=== PATIENT | male | born 1985 | race Caucasian/White ===

== ENCOUNTER 2019-12-16 09:32 | Outpatient (REF) | payer OTHER, SELFPAY ==
--- NOTE | 2019-12-16 09:34 | XR_ITS ---
EXAMINATION: XR SHOULDER, RIGHT CLINICAL INFORMATION: Pain right shoulder COMPARISON: None TECHNIQUE: Right shoulder is imaged in 3 views. FINDINGS: There is no fracture or dislocation. The glenohumeral joint appears normal. The acromioclavicular alignment is normal. There are no visible rotator cuff calcifications. XR/XR shoulder RT min 2V IMPRESSION: Normal right shoulder.
== END 2019-12-16 09:33 | disposition home or self-care (01) ==
LOC: HO.XRAY 09:32
PROVIDERS: PCP Nurse Practitioner Family; Referring Provider Nurse Practitioner Family; Visit Provider Orthopaedic Surgery
DX: M25.519 Pain in unspecified shoulder (principal)
CPT/HCPCS: 73030

== ENCOUNTER 2024-12-24 09:47 | Inpatient (IN) | payer OTHER, SELFPAY ==
--- NOTE | ~2024-12-24 | CT_ITS ---
CLINICAL HISTORY: left flank pain CT abdomen and pelvis without contrast Comparison: None provided Findings: No consolidation or effusion. No urolithiasis or hydronephrosis. Unremarkable liver, spleen, pancreas and adrenal glands. Possible sludge within the gallbladder. There is severe edema of a diverticulum within the proximal sigmoid colon. Severe edema of the associated colon wall and adjacent mesentery. Trace adjacent free fluid. No abscess or extraluminal gas. Pelvic contents unremarkable. Normal appendix. The bones are intact. IMPRESSION: 1. Severe acute diverticulitis of the proximal sigmoid colon. The degree of associated edema raises the possibility of early contained perforation. There is a small amount of free fluid but no abscess. 2. Possible sludge within the gallbladder. This document has been electronically signed by: Sammie Kim MD on 12/24/2024 13:04:00
[2024-12-24 09:51] VITALS: BP 139/79; PULSE 93; RESP 18; TEMP 36.8; O2SAT 98; BMI 24.2
[2024-12-24 10:08] LABS: Hematocrit 46.3 % (42.0-52.0); Hemoglobin 15.6 g/dl (14.0-18.0); Imm Gran Abs Auto 0.05 X10*3/uL (0.00-0.03); Imm Gran Pct Auto 0.3 % (0.0-0.4); Lymphocytes Absolute Auto 1.9 X10*3/uL (1.2-4.9); Mean Corpuscular HGB Conc 33.7 g/dl (31.0-36.0); Mean Corpuscular Hemoglobin 29.3 pg (27.0-33.0); Mean Corpuscular Volume 87.0 fL (80.0-98.0); NRBC Abs Auto 0.000 X10*3/uL (0.0-0.012); NRBC Pct Auto 0.0 /100WBC (0.0-0.2); Platelet Count 299 X10*3/uL (160-400); Red Blood Count 5.32 X10*6/uL (4.60-5.80); SCAN SMEAR FLAG 1; White Blood Count 14.7 X10*3/uL (4.8-10.8)
[2024-12-24 10:09] LABS: MANUAL DIFF FLAG SCAN
[2024-12-24 10:28] LABS: Alanine Aminotransferase 27 U/L (0-40); Albumin Level 4.9 g/dL (3.5-5.0); Alkaline Phosphatase 68 U/L (39-117); Anion Gap 11 (12-20); Aspartate Amino Transferase 22 U/L (5-37); Blood Urea Nitrogen 14 mg/dL (9-16); Calcium 9.9 mg/dL (8.4-10.2); Carbon Dioxide 28 mmol/L (22-29); Chloride 105 mmol/L (96-108); Creatinine Clr Calc Pharmacy 106.8; Estimated Glomerular Filt Rate > 60; Potassium 4.1 mmol/L (3.3-5.1); Sodium 140 mmol/L (135-145); Total Protein 8.0 g/dL (6.5-8.0)
--- NOTE | 2024-12-24 10:35 | ED.ABDPAIN ---
HPI - Abdominal Pain General Chief Complaint: Abdominal Pain Stated Complaint: severe abd pain Time Seen by Provider: 12/24/24 10:00 History of Present Illness HPI narrative: Patient is a 39-year-old male presents today with having left lower quadrant pain sudden in onset no history of previous surgery no history of kidney stone in the past. No fever no chills. No vomiting. No diarrhea. Patient from home. Pain is 12/02. Related Data Home Medications ?Medication ?Instructions ?Recorded ?Confirmed No Known Home Meds 12/22/19 12/22/19 Allergies Allergy/AdvReac Type Severity Reaction Status Date / Time No Known Allergies Allergy Verified 12/24/24 09:53 Review of Systems Review of Systems Positive abdominal pain in the left lower quadrant Yes all other systems are reviewed and are negative PMFSH Past Medical History Attestation statement: The following information was validated with the patient. Medical History Shoulder pain Surgical History Hx of anterior cruciate ligament tear reconstruction Family History Family History Mother No problems noted. Father No problems noted. 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 Oriented X3. No acute distress. Eyes: Pupils equal, round and reactive to light. ENT: Pharynx normal. Neck: Normal inspection. Neck supple. No lymph nodes noted. No crepitus CVS: Normal heart rate and rhythm. Pulses normal. Normal S1 and S2 Respiratory: No respiratory distress. Breath sounds normal. No Wheezing. No rales Abdomen: Soft and nontender. Mild left lower quadrant pain no rebound or guarding Skin: Skin warm and dry. Normal skin color. Normal skin turgor. Extremities: No lower extremity edema. Neurovascular intact to all extremities. No Lacerations. No Rash Neuro: Oriented X 3. No motor deficit. No sensory deficit. Moving all extermities. No slurred speech Vital Signs: Vital Signs - 24 hr 12/24/24 09:51 12/24/24 10:58 12/24/24 12:23 Temperature 98.2 F 98.0 F Pulse Rate 93 72 Respiratory Rate 18 20 14 Blood Pressure 139/79 120/73 Pulse Oximetry 98 98 Oxygen Delivery Method Room Air Room Air BMI result Body Mass Index 24.2 Medical Decision Making Medical Decision Making [facility] Narrative: Patient is 39 years old presents today with having left lower quadrant abdominal pain. Urine showed no signs of infection but it did show lot of blood. The CT scan was done. CT scan showed evidence for diverticulitis there was a question early abscess. Antibiotic was started. Case was discussed with surgery. [place] at the present time not a surgical candidate. Once patient to be admitted on the medical team. Started on Rocephin and Flagyl. Discussed with patient the need to stay in the hospital given that there might be an early abscess. Currently in stable condition white count was 15 patient to be admitted Differential Diagnosis Differential Diagnoses: The differential diagnosis associated with the presentation includes Admission/Observation Consideration of admission/observation: Escalation of care including admission/observation considered Consult Healthcare Provider Management of the patient was discussed with: Hospitalist and Retail Support Specialist (Surgery) Lab Data [facility] Lab Attestation statement: I reviewed the patient's lab results. 12/24/24 10:03 12/24/24 10:03 Labs: Lab Results 12/24/24 12/24/24 Range/Units 10:03 10:24 WBC 14.7 H (4.8-10.8) X10*3/uL RBC 5.32 (4.60-5.80) X10*6/uL Hgb 15.6 (14.0-18.0) g/dl Hct 46.3 (42.0-52.0) % MCV 87.0 (80.0-98.0) fL MCH 29.3 (27.0-33.0) pg MCHC 33.7 (31.0-36.0) g/dl RDW 12.9 (11.0-16.0) % Plt Count 299 (160-400) X10*3/uL MPV 9.9 (9.4-12.4) fL Immature Gran % (Auto) 0.3 (0.0-0.4) % Neut % (Auto) 74.7 H (45-73) % Lymph % (Auto) 13.0 L (20-40) % [place] % (Auto) 10.8 (2-11) % Eos % (Auto) 0.5 (0-4) % Baso % (Auto) 0.7 (0-2) % Lymph # (Auto) 1.9 (1.2-4.9) X10*3/uL [place] # (Auto) 1.6 H (0.1-1.2) X10*3/uL Eos # (Auto) 0.1 (0.0-0.4) X10*3/uL Baso # (Auto) 0.1 (0.0-0.2) X10*3/uL Abs Immat Gran (auto) 0.05 H (0.00-0.03) X10*3/uL Absolute Neuts (auto) 11.0 H (2.0-8.3) x10*3/uL Absolute Nucleated RBC 0.000 (0.0-0.012) X10*3/uL Nucleated RBC % (auto) 0.0 (0.0-0.2) /100WBC Smear Tech's Comments VERIFIED Sodium 140 (135-145) mmol/L Potassium 4.1 (3.3-5.1) mmol/L Chloride 105 (96-108) mmol/L Carbon Dioxide 28 (22-29) mmol/L Anion Gap 11 L (12-20) BUN 14 (9-16) mg/dL Creatinine 0.88 (0.5-1.4) mg/dL Estim Creat Clear Calc 106.8 Estimated GFR > 60 Random Glucose 105 (60-115) mg/dL Calcium 9.9 (8.4-10.2) mg/dL Total Bilirubin 0.9 (0.0-1.0) mg/dL AST 22 (5-37) U/L ALT 27 (0-40) U/L Alkaline Phosphatase 68 (39-117) U/L Total Protein 8.0 (6.5-8.0) g/dL Albumin 4.9 (3.5-5.0) g/dL Lipase 11 (8-78) U/L Urine Color Dark Yellow Urine Appearance Clear Urine pH 6.0 (5.0-9.0) Ur Specific [place] 1.025 (1.005-1.025) Urine Protein Trace (Neg-Trace) mg/dL Urine Glucose (UA) Negative (Negative) mg/dL Urine Ketones 40 (Negative) mg/dL Urine Blood Moderate (2+) H (Negative) Urine Nitrite Negative (Negative) Ur Leukocyte Esterase Trace H (Negative) Urine RBC 11-20 H (0-2) /HPF Urine WBC 0-5 (0-5) /HPF Ur Squamous Epith Cells 0-2 (0-2) /HPF Urine Bacteria None Seen (None Seen) Hyaline Casts 0-2 (0-2) /LPF Independent Interpretation I performed an independent interpretation of an: CT Scan (Likely diverticulitis) Radiology Impression Discussion of test interpretation with radiology: I have reviewed the radiologist's reading. External Record Review External record reviewed: Office record Social Determinants Patient?s care significantly limited by Social Determinants of Health including: Problems related to primary support group Medications Administered Discontinued Medications Generic Name Dose Route Start Last Admin Trade Name Freq PRN Reason Stop Dose Admin Hydromorphone HCl 0.5 mg 12/24/24 10:30 12/24/24 10:58 Hydromorphone Hcl 0.5 Mg/0.5 Ml Syringe IVPUSH 12/24/24 10:31 0.5 mg ONCE ONE Administration Protocol Sodium Chloride 1,000 mls @ 999 mls/hr 12/24/24 10:30 12/24/24 12:14 Ns IV 12/24/24 11:30 Infused .Q1H1M JOVAN Infusion Sodium Chloride 1,000 mls @ 999 mls/hr 12/24/24 10:30 12/24/24 12:15 Ns IV 12/24/24 11:30 Infused .Q1H1M JOVAN Infusion Ketorolac Tromethamine 15 mg 12/24/24 10:32 12/24/24 10:59 Ketorolac Tromethamine 15 Mg/Ml Vial IVPUSH 12/24/24 10:33 15 mg ONCE ONE Administration Ondansetron HCl 4 mg 12/24/24 10:34 12/24/24 10:58 Ondansetron Hcl 4 Mg/2 Ml Vial IVPUSH 12/24/24 10:35 4 mg ONCE ONE Administration Critical Care Time Critical Care Time Critical Care Time: Yes Total Critical Care Time: 40 Attestation: I have personally provided 40 minutes of critical care time exclusive of time spent on separately billable procedures. ?Time includes review of lab data, radiology results, discussion with consultants, and monitoring for potential decompensation. ?Interventions were performed as documented above Discharge Plan Discharge Clinical Impression: Diverticulitis Patient Disposition: Admitted As Inpatient Print Language: Luxembourger
[2024-12-24 10:36] LABS: Appearance Urine Clear; Glucose Urine UA Negative (Negative); PH 6.0 (5.0-9.0); Specific Gravity - Urine 1.025 (1.005-1.025); UMIC TRIGGER UACC YES
[2024-12-24 10:58] VITALS: RESP 20
[2024-12-24 11:20] LABS: Lipase 11 U/L (8-78)
[2024-12-24 12:23] VITALS: BP 120/73; PULSE 72; RESP 14; TEMP 36.7; O2SAT 98
--- NOTE | 2024-12-24 13:37 | PM.IMHP ---
History of Present Illness Date of Service: 12/24/24 Attending physician on admission: Laith Kendall Chief Complaint: abdominal pain This is a 39-year-old male with no significant past medical history who presents to the emergency department with abdominal pain. Patient reports abdominal pain starting 3 days ago. The pain is located in the left lower quadrant with no radiation. His pain is associated with nausea and decreased oral intake. He denies any diarrhea, fever, chills. He has not travel or any recent in the emergency department, lab work was significant for leukocytosis of 14.7. CT scan of the abdomen and pelvis showed severe acute diverticulitis of the proximal sigmoid colon. A degree of the edema associated was concerning for early contained perforation. There was a small amount of free fluid but no abscess. He denies any previous history of diverticulitis. He has had no previous colonoscopy. He was treated with IV ceftriaxone and Flagyl. The emergency room provider discussed the case with the on-call surgeon who recommended admission to the medicine service. Review of Systems Review of Systems: Yes all other systems are reviewed and are negative Constitutional: Constitutional: Denies chills and Denies fever(s) Cardiovascular: Cardiovascular: Denies chest pain, Denies palpitations and Denies dyspnea Respiratory: Respiratory: Denies cough and Denies dyspnea Gastrointestinal: Gastrointestinal: Reports abdominal pain, Denies diarrhea and Reports nausea Endocrine: Endocrine: Denies palpitations [facility] Medical History Shoulder pain Family History Mother No problems noted. Father No problems noted. 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 Meds Allergies Allergy/AdvReac Type Severity Reaction Status Date / Time No Known Allergies Allergy Verified 12/24/24 09:53 Active Medications: Current Medications Ceftriaxone Sodium 1 gm/ (Sodium Chloride) 50 mls @ 100 mls/hr IV ONCE ONE Stop: 12/24/24 13:43 Metronidazole (Flagyl) 500 mg in 100 mls @ 100 mls/hr IV ONCE ONE Stop: 12/24/24 14:13 Home Medications ?Medication ?Instructions ?Recorded ?Confirmed ?Last Taken ?Type No Known Home Meds 12/22/19 12/22/19 Unknown History Physical Exam Vital Signs and Narrative: Vital Signs: Last Vital Signs Temp 98.0 F 12/24/24 12:23 Pulse 72 12/24/24 12:23 Resp 14 12/24/24 12:23 BP 120/73 12/24/24 12:23 Pulse Ox 98 12/24/24 12:23 O2 Del Method Room Air 12/24/24 12:23 BMI result Body Mass Index 24.2 Const: Other: appears uncomfortable; pale General: cooperative, alert and awake Nutritional Appearance: average body habitus Orientation/consciousness: patient oriented x3 Resp: Effort & Inspection: normal respiratory effort, able to speak in complete sentences, no respiratory distress and no use of accessory muscles Cardio: Rate: regular rate GI: Other: LLQ TTP; no guarding or rebound; no rigidity Neuro: General: patient oriented x3, moves all extremities and CN's II-XI intact bilaterally Results Labs 12/24/24 10:03 12/24/24 10:03 Labs: Laboratory Results - last 24 hr 12/24/24 12/24/24 10:03 10:24 MCV 87.0 MCH 29.3 MCHC 33.7 RDW 12.9 Plt Count 299 MPV 9.9 Immature Gran % (Auto) 0.3 Neut % (Auto) 74.7 H Lymph % (Auto) 13.0 L [place] % (Auto) 10.8 Eos % (Auto) 0.5 Baso % (Auto) 0.7 Lymph # (Auto) 1.9 [place] # (Auto) 1.6 H Eos # (Auto) 0.1 Baso # (Auto) 0.1 Abs Immat Gran (auto) 0.05 H Absolute Neuts (auto) 11.0 H Absolute Nucleated RBC 0.000 Nucleated RBC % (auto) 0.0 Smear Tech's Comments VERIFIED Anion Gap 11 L Estim Creat Clear Calc 106.8 Estimated GFR > 60 Random Glucose 105 Calcium 9.9 Total Bilirubin 0.9 AST 22 ALT 27 Alkaline Phosphatase 68 Total Protein 8.0 Albumin 4.9 Lipase 11 Urine Color Dark Yellow Urine Appearance Clear Urine pH 6.0 Ur Specific [place] 1.025 Urine Protein Trace Urine Glucose (UA) Negative Urine Ketones 40 Urine Blood Moderate (2+) H Urine Nitrite Negative Ur Leukocyte Esterase Trace H Urine RBC 11-20 H Urine WBC 0-5 Ur Squamous Epith Cells 0-2 Urine Bacteria None Seen Hyaline Casts 0-2 Assessment and Plan (1) Diverticulitis: Status: Acute Plan This is a 39-year-old male with no significant past medical history who presents to the emergency department with abdominal pain found to have diverticulitis Complicated acute diverticulitis Imaging concerning for contained perforation IV Zosyn IVF, pain control clear liquid diet, ADAT general surgery consultation trend CBC dvt ppx - Lovenox Patient will likely require 2 midnight stay in the hospital for management of acute complicated diverticulitis with concern for perforation requiring serial abdominal exams, IV antibiotics, specialist evaluation and close monitoring to prevent decompensation Quality Stroke Does the patient have a stroke diagnosis?: No VTE Prior VTE?: No VTE Risk Level:: Medical - moderate - high VTE Device Contraindication: N/A - Device Ordered VTE Drug Contraindication: Treatment Not Indicated
[2024-12-24 14:22] VITALS: BP 126/74; PULSE 78; RESP 14; TEMP 36.7; O2SAT 97
[2024-12-24] MEDS: metroNIDAZOLE/NS 500 MG/100 ML PIGGYBACK 100 MG IV (14:31)
[2024-12-24] MEDS: Lactated Ringers 1,000 ML 125 ML IVCONT ×2 (14:37→23:18)
--- NOTE | 2024-12-24 16:30 | PHA.MEDREC ---
Pharmacy Consult ? Medication Reconciliation Pharmacy has completed the medication reconciliation. Patient is on no RX medications but is on a few OTCs
[2024-12-24 17:32] VITALS: BP 134/73; PULSE 82; RESP 14; TEMP 36.8; O2SAT 95
--- NOTE | 2024-12-24 19:26 | HO.NURTONUR ---
39 y/o M, A/ox3, Full Code Came from home for Left lower quadrant abdominal pain x2-3 days along with nausea no vomiting. Admit: Diverticulitis Labs: WBC 14.7 Reports: Abd/Pelvis CT- diverticulitis with increased edema, questioning an early perf. 20g IV Left AC- he is getting IV abc, has LR running @125ml/hr. Got pain meds upon arrival and pain has been controlled since. Clear liquid diet- pending general surgery consult Independent/Ambulatory at baseline.
[2024-12-24 19:59] VITALS: BP 125/76; PULSE 71; TEMP 36.7; O2SAT 96
[2024-12-25] MEDS: 0.9 % Sodium Chloride Flush 3 ML SYRINGE IVFLUSH (00:18)
[2024-12-25 03:18] VITALS: BP 116/63; PULSE 66; RESP 18; O2SAT 97
[2024-12-25] MEDS: Lactated Ringers 1,000 ML 125 ML IVCONT ×3 (05:57→23:24)
[2024-12-25 06:02] LABS: Hematocrit 40.9 % (42.0-52.0); Hemoglobin 13.6 g/dl (14.0-18.0); Mean Corpuscular HGB Conc 33.3 g/dl (31.0-36.0); Mean Corpuscular Hemoglobin 28.9 pg (27.0-33.0); Mean Corpuscular Volume 87.0 fL (80.0-98.0); NRBC Abs Auto 0.000 X10*3/uL (0.0-0.012); NRBC Pct Auto 0.0 /100WBC (0.0-0.2); Platelet Count 272 X10*3/uL (160-400); Red Blood Count 4.70 X10*6/uL (4.60-5.80); White Blood Count 10.6 X10*3/uL (4.8-10.8)
[2024-12-25 06:19] LABS: Anion Gap 14 (12-20); Blood Urea Nitrogen 7 mg/dL (9-16); Calcium 8.5 mg/dL (8.4-10.2); Carbon Dioxide 22 mmol/L (22-29); Chloride 109 mmol/L (96-108); Creatinine Clr Calc Pharmacy 140.3; Estimated Glomerular Filt Rate > 60; Potassium 3.6 mmol/L (3.3-5.1); Sodium 141 mmol/L (135-145)
--- NOTE | 2024-12-25 07:35 | P.PNIM_ITS ---
Subjective Subjective Date of Service: 12/25/24 Interval History: Diverticulitis Review of Systems Abdominal pain somewhat improving, Denies any nausea vomiting. Physical Exam 2 Exam: Exam: Appearance: Alert.? Oriented X3.? cvs: [id number], [id number] . res: clear to auscultation ,no rhonchii or wheezing abd: no rebound or guarding ,lower left abd pain, bs present. ext pulses present , no cyanosis . neuro: axo3 , nonfocal. Vital Signs: Vital Signs: Last Vital Signs Temp 98.1 F 12/24/24 19:59 Pulse 66 12/25/24 03:18 Resp 18 12/25/24 03:18 BP 116/63 12/25/24 03:18 Pulse Ox 97 12/25/24 03:18 O2 Del Method Room Air 12/25/24 03:18 BMI result Body Mass Index 24.2 Objective Data Active Medications Acetaminophen (Acetaminophen 325 Mg Tablet) 650 mg PO Q6H PRN PRN Reason: Pain, Mild 1-3,fever,headache Calcium Carbonate (Calcium Carbonate 750 Mg Tab.Chew) 750 mg PO Q4H PRN PRN Reason: Heartburn Enoxaparin Sodium (Enoxaparin Sodium 40 Mg/0.4 Ml Syringe) 40 mg SUBCUT Q24H [facility] Last Admin: 12/24/24 14:39 Dose: Not Given Documented By: GARLAND Non-Admin Reason: Patient Refused Lactated Ringer's (Lr) 1,000 mls @ 125 mls/hr IVCONT .Q8H [facility] Last Admin: 12/25/24 05:57 Dose: 125 mls/hr Documented By: PHOEBE Piperacillin Sod/Tazobactam (Sod 4.5 gm/ Sodium Chloride) 100 mls @ 200 mls/hr IV Q6H [facility] Last Infusion: 12/25/24 05:56 Dose: Infused Documented By: PHOEBE Magnesium Hydroxide (Milk Of Magnesia 30 Ml Oral.Susp) 30 ml PO DAILY PRN PRN Reason: Constipation Melatonin (Melatonin 3 Mg Tablet) 6 mg PO BEDTIME PRN PRN Reason: Insomnia Morphine Sulfate (Morphine Sulfate 4 Mg/Ml Cartridge) 2 mg IVPUSH Q4H PRN; Protocol PRN Reason: Pain, Severe (Pain Scale 7-10) Ondansetron HCl (Ondansetron Hcl 4 Mg/2 Ml Vial) 4 mg IVPUSH Q8H PRN PRN Reason: Nausea and Vomiting Oxycodone HCl (Oxycodone Hcl Immed Release 5 Mg Tablet) 5 mg PO Q6H PRN PRN Reason: Pain, Moderate(Pain Scale 4-6) Sodium Chloride (0.9 % Sodium Chloride Flush 3 Ml Syringe) 3 ml IVFLUSH QSHIFT [facility] Last Admin: 12/25/24 00:18 Dose: 3 ml Documented By: PHOEBE Labs 12/25/24 05:39 12/25/24 05:39 Labs: Laboratory Results - last 24 hr 12/24/24 12/24/24 12/24/24 10:03 10:24 14:00 MCV 87.0 MCH 29.3 MCHC 33.7 RDW 12.9 Plt Count 299 MPV 9.9 Immature Gran % (Auto) 0.3 Neut % (Auto) 74.7 H Lymph % (Auto) 13.0 L [place] % (Auto) 10.8 Eos % (Auto) 0.5 Baso % (Auto) 0.7 Lymph # (Auto) 1.9 [place] # (Auto) 1.6 H Eos # (Auto) 0.1 Baso # (Auto) 0.1 Abs Immat Gran (auto) 0.05 H Absolute Neuts (auto) 11.0 H Absolute Nucleated RBC 0.000 Nucleated RBC % (auto) 0.0 Smear Tech's Comments VERIFIED Anion Gap 11 L Estim Creat Clear Calc 106.8 Estimated GFR > 60 Random Glucose 105 Lactic Acid 1.0 Calcium 9.9 Total Bilirubin 0.9 AST 22 ALT 27 Alkaline Phosphatase 68 Total Protein 8.0 Albumin 4.9 Lipase 11 Urine Color Dark Yellow Urine Appearance Clear Urine pH 6.0 Ur Specific [place] 1.025 Urine Protein Trace Urine Glucose (UA) Negative Urine Ketones 40 Urine Blood Moderate (2+) H Urine Nitrite Negative Ur Leukocyte Esterase Trace H Urine RBC 11-20 H Urine WBC 0-5 Ur Squamous Epith Cells 0-2 Urine Bacteria None Seen Hyaline Casts 0-2 12/25/24 05:39 MCV 87.0 MCH 28.9 MCHC 33.3 RDW 12.8 Plt Count 272 MPV 9.8 Immature Gran % (Auto) Neut % (Auto) Lymph % (Auto) [place] % (Auto) Eos % (Auto) Baso % (Auto) Lymph # (Auto) [place] # (Auto) Eos # (Auto) Baso # (Auto) Abs Immat Gran (auto) Absolute Neuts (auto) Absolute Nucleated RBC 0.000 Nucleated RBC % (auto) 0.0 Smear Tech's Comments Anion Gap 14 Estim Creat Clear Calc 140.3 Estimated GFR > 60 Random Glucose 82 Lactic Acid Calcium 8.5 D Total Bilirubin AST ALT Alkaline Phosphatase Total Protein Albumin Lipase Urine Color Urine Appearance Urine pH Ur Specific [place] Urine Protein Urine Glucose (UA) Urine Ketones Urine Blood Urine Nitrite Ur Leukocyte Esterase Urine RBC Urine WBC Ur Squamous Epith Cells Urine Bacteria Hyaline Casts Assessment and Plan (1) Diverticulitis: Status: Acute Plan 39-year-old male with no significant past medical history who presents to the emergency department with abdominal pain found to have diverticulitis Complicated acute diverticulitis Imaging concerning for contained perforation IV Zosyn IVF, pain control clear liquid diet, ADAT general surgery consultation trend CBC dvt ppx - Lovenox ongoing need to stay in hospital for management of acute complicated diverticulitis with concern for perforation requiring serial abdominal exams, IV antibiotics, specialist evaluation and close monitoring to prevent decompensation Quality Stroke Does the patient have a stroke diagnosis?: No VTE Prior VTE?: No VTE Risk Level:: Medical - moderate - high VTE Device Contraindication: N/A - Device Ordered VTE Drug Contraindication: Treatment Not Indicated
[2024-12-25 07:44] VITALS: BP 108/59; PULSE 70; RESP 18; TEMP 36.2; O2SAT 97
--- NOTE | 2024-12-25 09:16 | PM.CNGS ---
History of Present Illness Consult details Consult date: 12/25/24 Narrative: [age] year old male, who came to the ER last night because of left lower quadrant pain. He says this started about 2 days prior to admission. This has been constant. He denies any nausea or vomiting. He denied any diarrhea. He denies any fever or chills at home. He said that he had never had any similar episode like this in the past. He has never had any abdominal surgeries. He does state that he feels much better this morning compared to yesterday. Review of Systems Constitutional: Constitutional: Denies chills and Denies fever(s) Cardiovascular: Cardiovascular: Denies chest pain, Denies dyspnea and Denies dyspnea on exertion Respiratory: Respiratory: Denies cough, Denies dyspnea and Denies dyspnea on exertion Gastrointestinal: Gastrointestinal: Denies hematochezia and Denies change in bowel habits Genitourinary: Genitourinary: Denies hematuria and Denies difficulty urinating Musculoskeletal: Musculoskeletal: Denies back pain and Denies limited range of motion Neurologic: Denies focal weakness and Denies convulsions Psychiatric: Psychiatric: Denies depression and Denies mood swings [facility] Past Medical History Medical History Shoulder pain Family History Family History Mother No problems noted. Father No problems noted. 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 Meds Allergies Allergy/AdvReac Type Severity Reaction Status Date / Time No Known Allergies Allergy Verified 12/24/24 09:53 Active Medications: Current Medications Acetaminophen (Acetaminophen 325 Mg Tablet) 650 mg PO Q6H PRN PRN Reason: Pain, Mild 1-3,fever,headache Calcium Carbonate (Calcium Carbonate 750 Mg Tab.Chew) 750 mg PO Q4H PRN PRN Reason: Heartburn Enoxaparin Sodium (Enoxaparin Sodium 40 Mg/0.4 Ml Syringe) 40 mg SUBCUT Q24H [facility] Last Admin: 12/24/24 14:39 Dose: Not Given Lactated Ringer's (Lr) 1,000 mls @ 125 mls/hr IVCONT .Q8H [facility] Last Admin: 12/25/24 05:57 Dose: 125 mls/hr Piperacillin Sod/Tazobactam (Sod 4.5 gm/ Sodium Chloride) 100 mls @ 200 mls/hr IV Q6H [facility] Last Infusion: 12/25/24 05:56 Dose: Infused Magnesium Hydroxide (Milk Of Magnesia 30 Ml Oral.Susp) 30 ml PO DAILY PRN PRN Reason: Constipation Melatonin (Melatonin 3 Mg Tablet) 6 mg PO BEDTIME PRN PRN Reason: Insomnia Morphine Sulfate (Morphine Sulfate 4 Mg/Ml Cartridge) 2 mg IVPUSH Q4H PRN; Protocol PRN Reason: Pain, Severe (Pain Scale 7-10) Ondansetron HCl (Ondansetron Hcl 4 Mg/2 Ml Vial) 4 mg IVPUSH Q8H PRN PRN Reason: Nausea and Vomiting Oxycodone HCl (Oxycodone Hcl Immed Release 5 Mg Tablet) 5 mg PO Q6H PRN PRN Reason: Pain, Moderate(Pain Scale 4-6) Sodium Chloride (0.9 % Sodium Chloride Flush 3 Ml Syringe) 3 ml IVFLUSH QSHIFT [facility] Last Admin: 12/25/24 08:29 Dose: Not Given Home Medications ?Medication ?Instructions ?Recorded ?Confirmed ?Last Taken ?Type calcium carbonate (Calcium 600) 600 mg PO DAILY 12/24/24 12/24/24 Unknown History cyanocobalamin (vitamin B-12) 1,000 mcg PO DAILY 12/24/24 12/24/24 Unknown History 1,000 mcg tablet glucosamine sulfate 500 mg tablet 500 mg PO DAILY 12/24/24 12/24/24 Unknown History (Glucosamine) omega 4-die-sth-fish oil 1,000 mg 1 cap PO DAILY 12/24/24 12/24/24 Unknown History (120 mg-180 mg) capsule (Fish Oil) red yeast rice 600 mg capsule 600 mg PO DAILY 12/24/24 12/24/24 Unknown History Physical Exam Vital Signs: Vital Signs: Last Vital Signs Temp 97.2 F 12/25/24 07:44 Pulse 70 12/25/24 07:44 Resp 18 12/25/24 07:44 BP 108/59 L 12/25/24 07:44 Pulse Ox 97 12/25/24 07:44 O2 Del Method Room Air 12/25/24 07:44 BMI result Body Mass Index 24.2 Const: General: comfortable and no acute distress Orientation/consciousness: patient oriented x3 Neck: Neck: Yes no lymphadenopathy Resp: Auscultation: clear to auscultation bilaterally Cardio: Rhythm: regular rhythm GI: Other: Some tenderness in the left lower quadrant, Palpation (GI): Soft to palpation, nontender and no guarding Neuro: General: patient oriented x3 Results Labs 12/25/24 05:39 12/25/24 05:39 Labs: Abnormal lab results 12/24/24 12/24/24 12/25/24 Range/Units 10:03 10:24 05:39 Hgb 13.6 L (14.0-18.0) g/dl Hct 40.9 L (42.0-52.0) % Neut % (Auto) 74.7 H (45-73) % Lymph % (Auto) 13.0 L (20-40) % [place] # (Auto) 1.6 H (0.1-1.2) X10*3/uL Abs Immat Gran (auto) 0.05 H (0.00-0.03) X10*3/uL Absolute Neuts (auto) 11.0 H (2.0-8.3) x10*3/uL Chloride 109 H (96-108) mmol/L Anion Gap 11 L (12-20) BUN 7 L (9-16) mg/dL Urine Blood Moderate (2+) H (Negative) Ur Leukocyte Esterase Trace H (Negative) Urine RBC 11-20 H (0-2) /HPF Short CBC 12/25/24 Range/Units 05:39 WBC 10.6 (4.8-10.8) X10*3/uL Hgb 13.6 L (14.0-18.0) g/dl Hct 40.9 L (42.0-52.0) % Plt Count 272 (160-400) X10*3/uL BMP 12/24/24 12/25/24 10:03 05:39 Sodium 140 141 Potassium 4.1 3.6 Chloride 105 109 H Carbon Dioxide 28 22 BUN 14 7 L Creatinine 0.88 0.67 Calcium 9.9 8.5 D Liver Function 12/24/24 Range/Units 10:03 Total Bilirubin 0.9 (0.0-1.0) mg/dL AST 22 (5-37) U/L ALT 27 (0-40) U/L Alkaline Phosphatase 68 (39-117) U/L Albumin 4.9 (3.5-5.0) g/dL Urine 12/24/24 Range/Units 10:24 Urine Color Dark Yellow Urine Appearance Clear Urine pH 6.0 (5.0-9.0) Ur Specific [place] 1.025 (1.005-1.025) Urine Protein Trace (Neg-Trace) mg/dL Urine Glucose (UA) Negative (Negative) mg/dL All other labs normal. Imaging Abdomen CT scan report/results: report reviewed CT scan - pelvis: report reviewed and image reviewed Additional studies: CT abdomen and pelvis without contrast Comparison: None provided Findings: No consolidation or effusion. No urolithiasis or hydronephrosis. Unremarkable liver, spleen, pancreas and adrenal glands. Possible sludge within the gallbladder. There is severe edema of a diverticulum within the proximal sigmoid colon. Severe edema of the associated colon wall and adjacent mesentery. Trace adjacent free fluid. No abscess or extraluminal gas. Pelvic contents unremarkable. Normal appendix. The bones are intact. IMPRESSION: 1. Severe acute diverticulitis of the proximal sigmoid colon. The degree of associated edema raises the possibility of early contained perforation. There is a small amount of free fluid but no abscess. 2. Possible sludge within the gallbladder. Assessment and Plan (1) Diverticulitis: Status: Acute 39-year-old male, otherwise healthy, admitted for acute diverticulitis. I have reviewed his CAT scan. This shows severe inflammatory changes in the sigmoid colon He does feel clinically much improved this morning. I explained to him that treatment would include IV antibiotics, and bowel rest. I explained to him that in the event that he does not improve in a reasonable period of time, or he clinically worsens, he may require urgent surgery Otherwise, I would allow him to have clear liquids today. I also explained to him that he should have a colonoscopy at some point when he gets discharged for this acute episode I will follow along while he is in the hospital. Procedures Date of Service Date of Service: 12/27/24
--- NOTE | 2024-12-25 14:55 | MHC.CM.PN ---
PT REPORTS HE LIVES WITH HIS AND KIDS AND IS INDEPENDENT WITH CARE HE HAS NO DME OR SERVICES DECLINES A HCP PCP: ANA ROSA BAUMAN DCP: HOME VIA PRIVATE TRANSPORT
[2024-12-25 15:15] VITALS: BP 124/82; PULSE 71; RESP 15; TEMP 36.3; O2SAT 98
[2024-12-25 19:30] VITALS: BP 146/88; PULSE 62; RESP 14; TEMP 36.4; O2SAT 98
[2024-12-26 04:00] VITALS: BP 124/72; PULSE 77; RESP 18; TEMP 36.6; O2SAT 99
--- NOTE | 2024-12-26 07:23 | P.PNGS_ITS ---
Subjective Subjective Date of Service: 12/26/24 <Tennille Buckner PA-C - Last Filed: 12/26/24 07:28> 12/26/24 <Ernst Adkins MD - Last Filed: 12/26/24 08:05> Interval history: Feels significantly improved this morning. Reports only soreness now with palpation and no real pain. Hungry and would like to eat. Passing flatus, no bm. <Tennille Buckner PA-C - Last Filed: 12/26/24 07:28> Physical Exam 2 Vital Signs: Vital Signs: Last Vital Signs Temp 97.8 F 12/26/24 04:00 Pulse 77 12/26/24 04:00 Resp 18 12/26/24 04:00 BP 124/72 12/26/24 04:00 Pulse Ox 99 12/26/24 04:00 O2 Del Method Room Air 12/26/24 04:00 BMI result Body Mass Index 24.2 <Tennille Buckner PA-C - Last Filed: 12/26/24 07:28> Const: General: comfortable, no acute distress and alert <Tennille Buckner PA-C - Last Filed: 12/26/24 07:28> Orientation/consciousness: patient oriented x3 <GRIS Rodriguez Last Filed: 12/26/24 07:28> Resp: Effort & Inspection: normal respiratory effort <Tennille Buckner PA-C - Last Filed: 12/26/24 07:28> GI: Inspection: Yes normal to inspection and No scar <Tennille Buckner PA-C - Last Filed: 12/26/24 07:28> Palpation (GI): Soft to palpation, Tenderness to palpation present (GI) (mild suprapubic, LLQ tenderness) and no guarding <GRIS Rodriguez Last Filed: 12/26/24 07:28> Percussion: Yes normal to percussion <GRIS Rodriguez Last Filed: 12/26/24 07:28> Skin: General skin exam: no rashes or lesions noted <GRIS Rodriguez Last Filed: 12/26/24 07:28> Neuro: General: patient oriented x3 and moves all extremities <Tennille Buckner PA-C - Last Filed: 12/26/24 07:28> Objective Data Active Medications Acetaminophen (Acetaminophen 325 Mg Tablet) 650 mg PO Q6H PRN PRN Reason: Pain, Mild 1-3,fever,headache Calcium Carbonate (Calcium Carbonate 750 Mg Tab.Chew) 750 mg PO Q4H PRN PRN Reason: Heartburn Enoxaparin Sodium (Enoxaparin Sodium 40 Mg/0.4 Ml Syringe) 40 mg SUBCUT Q24H [facility] Last Admin: 12/25/24 15:20 Dose: Not Given Documented By: ALBINO Non-Admin Reason: Patient Refused Lactated Ringer's (Lr) 1,000 mls @ 125 mls/hr IVCONT .Q8H [facility] Last Infusion: 12/26/24 05:45 Dose: 125 mls/hr Documented By: NIRU Piperacillin Sod/Tazobactam (Sod 4.5 gm/ Sodium Chloride) 100 mls @ 200 mls/hr IV Q6H [facility] Last Infusion: 12/26/24 05:42 Dose: Infused Documented By: NIRU Magnesium Hydroxide (Milk Of Magnesia 30 Ml Oral.Susp) 30 ml PO DAILY PRN PRN Reason: Constipation Melatonin (Melatonin 3 Mg Tablet) 6 mg PO BEDTIME PRN PRN Reason: Insomnia Morphine Sulfate (Morphine Sulfate 4 Mg/Ml Cartridge) 2 mg IVPUSH Q4H PRN; Protocol PRN Reason: Pain, Severe (Pain Scale 7-10) Ondansetron HCl (Ondansetron Hcl 4 Mg/2 Ml Vial) 4 mg IVPUSH Q8H PRN PRN Reason: Nausea and Vomiting Oxycodone HCl (Oxycodone Hcl Immed Release 5 Mg Tablet) 5 mg PO Q6H PRN PRN Reason: Pain, Moderate(Pain Scale 4-6) Sodium Chloride (0.9 % Sodium Chloride Flush 3 Ml Syringe) 3 ml IVFLUSH QSHIFT [facility] Last Admin: 12/25/24 23:27 Dose: Not Given Documented By: NIRU Non-Admin Reason: IV Running <Tennille Buckner PA-C - Last Filed: 12/26/24 07:28> Labs CBC & Chem 7: 12/25/24 05:39 12/25/24 05:39 <Tennille Buckner PA-C - Last Filed: 12/26/24 07:28> Microbiology Microbiology Results: Microbiology 12/24/24 13:40 Blood Culture - Preliminary Blood - Venous No growth after 24 hours. 12/24/24 13:40 Blood Culture - Preliminary Blood - Venous No growth after 24 hours. <Tennille Buckner PA-C - Last Filed: 12/26/24 07:28> Procedures Date of Service Date of Service: 12/26/24 <Tennille Buckner PA-C - Last Filed: 12/26/24 07:28> 12/26/24 <Ernst Adkins MD - Last Filed: 12/26/24 08:05> Progress Note: A&P Assessment and plan (1) Diverticulitis: Status: Acute <Tennille Buckner PA-C - Last Filed: 12/26/24 07:28> Assessment and Plan: Continues to feel better Less pain Abdomen is soft and benign No fever Okay to advance diet as tolerated Continue IV antibiotics for now Possible DC home tomorrow Outpatient colonoscopy Seen and examined independently <Ernst Adkins MD - Last Filed: 12/26/24 08:05> Assessment and Plan: Symptomatically improved, WBC normalized yesterday. VSS, afebrile. Abd benign with mild suprapubic/LLQ tenderness. Will advance to solid diet. Recommend bowel regimen. If tolerating, stable for dc tomorrow on course of oral abx. F/u with GI for outpatient colonoscopy. <Tennille Buckner PA-C - Last Filed: 12/26/24 07:28> Time Spent With Patient Time: Total time managing care of this patient today ____ minutes. <Tennille Buckner PA-C - Last Filed: 12/26/24 07:28> Quality Stroke Does the patient have a stroke diagnosis?: No <GRIS Rodriguez Last Filed: 12/26/24 07:28> VTE Prior VTE?: No <GRIS Rodriguez Last Filed: 12/26/24 07:28> VTE Risk Level:: Medical - moderate - high <Tennille Buckner PA-C - Last Filed: 12/26/24 07:28> VTE Device Contraindication: N/A - Device Ordered <Tennille Buckner PA-C - Last Filed: 12/26/24 07:28> VTE Drug Contraindication: Treatment Not Indicated <Tennille Buckner PA-C - Last Filed: 12/26/24 07:28>
[2024-12-26 08:00] VITALS: BP 139/90; PULSE 74; RESP 18; TEMP 36.3; O2SAT 99
--- NOTE | 2024-12-26 11:31 | P.PNIM_ITS ---
Subjective Subjective Date of Service: 12/26/24 Interval History: Diverticulitis Review of Systems Abdominal pain somewhat improving, Denies any nausea vomiting. Physical Exam 2 Exam: Exam: Appearance: Alert.? Oriented X3.? cvs: rrr, [id number] . res: clear to auscultation ,no rhonchii or wheezing abd: no rebound or guarding ,lower left abd pain, bs present. ext pulses present , no cyanosis . neuro: axo3 , nonfocal. Vital Signs: Vital Signs: Last Vital Signs Temp 97.3 F 12/26/24 08:00 Pulse 74 12/26/24 08:00 Resp 18 12/26/24 08:00 BP 139/90 H 12/26/24 08:00 Pulse Ox 99 12/26/24 08:00 O2 Del Method Room Air 12/26/24 08:00 BMI result Body Mass Index 24.2 Objective Data Active Medications Acetaminophen (Acetaminophen 325 Mg Tablet) 650 mg PO Q6H PRN PRN Reason: Pain, Mild 1-3,fever,headache Calcium Carbonate (Calcium Carbonate 750 Mg Tab.Chew) 750 mg PO Q4H PRN PRN Reason: Heartburn Enoxaparin Sodium (Enoxaparin Sodium 40 Mg/0.4 Ml Syringe) 40 mg SUBCUT Q24H [facility] Last Admin: 12/25/24 15:20 Dose: Not Given Documented By: ALBINO Non-Admin Reason: Patient Refused Piperacillin Sod/Tazobactam (Sod 4.5 gm/ Sodium Chloride) 100 mls @ 200 mls/hr IV Q6H [facility] Last Infusion: 12/26/24 05:42 Dose: Infused Documented By: NIRU Magnesium Hydroxide (Milk Of Magnesia 30 Ml Oral.Susp) 30 ml PO DAILY PRN PRN Reason: Constipation Melatonin (Melatonin 3 Mg Tablet) 6 mg PO BEDTIME PRN PRN Reason: Insomnia Morphine Sulfate (Morphine Sulfate 4 Mg/Ml Cartridge) 2 mg IVPUSH Q4H PRN; Protocol PRN Reason: Pain, Severe (Pain Scale 7-10) Ondansetron HCl (Ondansetron Hcl 4 Mg/2 Ml Vial) 4 mg IVPUSH Q8H PRN PRN Reason: Nausea and Vomiting Oxycodone HCl (Oxycodone Hcl Immed Release 5 Mg Tablet) 5 mg PO Q6H PRN PRN Reason: Pain, Moderate(Pain Scale 4-6) Sodium Chloride (0.9 % Sodium Chloride Flush 3 Ml Syringe) 3 ml IVFLUSH QSHIFT [facility] Last Admin: 12/26/24 08:13 Dose: Not Given Documented By: EVIE Non-Admin Reason: IV Running Labs 12/25/24 05:39 12/25/24 05:39 Microbiology Microbiology Results: Microbiology 12/24/24 13:40 Blood Culture - Preliminary Blood - Venous No growth after 24 hours. 12/24/24 13:40 Blood Culture - Preliminary Blood - Venous No growth after 24 hours. Assessment and Plan (1) Diverticulitis: Status: Acute Plan 39-year-old male with no significant past medical history who presents to the emergency department with abdominal pain found to have diverticulitis Complicated acute diverticulitis Imaging concerning for contained perforation IV Zosyn IVF, pain control clear liquid diet, ADAT general surgery consultation trend CBC dvt ppx - Lovenox ongoing need to stay in hospital for management of acute complicated diverticulitis with concern for perforation requiring serial abdominal exams, IV antibiotics, specialist evaluation and close monitoring to prevent decompensation Quality Stroke Does the patient have a stroke diagnosis?: No VTE Prior VTE?: No VTE Risk Level:: Medical - moderate - high VTE Device Contraindication: N/A - Device Ordered VTE Drug Contraindication: Treatment Not Indicated
--- NOTE | 2024-12-26 15:17 | MHC.CM.PN ---
PPER ROUNDS PT WILL BE READY FOR DC IN 1 TO 2 DAYS DC PLAN REMANINS HOME
[2024-12-26 15:52] VITALS: BP 131/90; PULSE 71; RESP 18; TEMP 36.4; O2SAT 97
[2024-12-26 19:15] VITALS: BP 144/90; PULSE 72; RESP 18; TEMP 36.8; O2SAT 98
[2024-12-26] MEDS: 0.9 % Sodium Chloride Flush 3 ML SYRINGE IVFLUSH (23:11)
[2024-12-27 04:00] VITALS: BP 120/68; PULSE 68; RESP 18; TEMP 36.6; O2SAT 98
[2024-12-27 07:37] VITALS: BP 119/77; PULSE 66; RESP 18; TEMP 36.6; O2SAT 98
--- NOTE | 2024-12-27 08:26 | P.PNGS_ITS ---
Subjective Subjective Date of Service: 12/27/24 <Tennille Buckner PA-C - Last Filed: 12/27/24 08:28> 12/27/24 <Ernst Adkins MD - Last Filed: 12/27/24 12:19> Interval history: Tolerated solid diet without worsening pain yesterday. Has had a few liquid stools. Currently denies any pain unless he pushes on the area. Feels well. <Tennille Buckner PA-C - Last Filed: 12/27/24 08:28> Physical Exam 2 Vital Signs: Vital Signs: Last Vital Signs Temp 97.9 F 12/27/24 07:37 Pulse 66 12/27/24 07:37 Resp 18 12/27/24 07:37 BP 119/77 12/27/24 07:37 Pulse Ox 98 12/27/24 07:37 O2 Del Method Room Air 12/27/24 07:37 BMI result Body Mass Index 24.2 <Tennille Buckner PA-C - Last Filed: 12/27/24 08:28> Const: General: comfortable, no acute distress and alert <Tennille Buckner PA-C - Last Filed: 12/27/24 08:28> Orientation/consciousness: patient oriented x3 <GRIS Rodriguez Last Filed: 12/27/24 08:28> GI: Other: soft, very mild suprapubic/LLQ tenderness <Tennille Buckner PA-C - Last Filed: 12/27/24 08:28> Inspection: No distended <Tennille Buckner PA-C - Last Filed: 12/27/24 08:28> Palpation (GI): no guarding <Tennille Buckner PA-C - Last Filed: 12/27/24 08:28> Percussion: Yes normal to percussion <GRIS Rodriguez Last Filed: 12/27/24 08:28> Skin: General skin exam: no rashes or lesions noted <GRIS Rodriguez Last Filed: 12/27/24 08:28> Neuro: General: patient oriented x3 and moves all extremities <GRIS Rodriguez Last Filed: 12/27/24 08:28> Objective Data Active Medications Acetaminophen (Acetaminophen 325 Mg Tablet) 650 mg PO Q6H PRN PRN Reason: Pain, Mild 1-3,fever,headache Calcium Carbonate (Calcium Carbonate 750 Mg Tab.Chew) 750 mg PO Q4H PRN PRN Reason: Heartburn Enoxaparin Sodium (Enoxaparin Sodium 40 Mg/0.4 Ml Syringe) 40 mg SUBCUT Q24H [facility] Last Admin: 12/26/24 13:53 Dose: Not Given Documented By: JAG Non-Admin Reason: Patient Refused Piperacillin Sod/Tazobactam (Sod 4.5 gm/ Sodium Chloride) 100 mls @ 200 mls/hr IV Q6H [facility] Last Infusion: 12/27/24 05:41 Dose: Infused Documented By: NIRU Magnesium Hydroxide (Milk Of Magnesia 30 Ml Oral.Susp) 30 ml PO DAILY PRN PRN Reason: Constipation Melatonin (Melatonin 3 Mg Tablet) 6 mg PO BEDTIME PRN PRN Reason: Insomnia Morphine Sulfate (Morphine Sulfate 4 Mg/Ml Cartridge) 2 mg IVPUSH Q4H PRN; Protocol PRN Reason: Pain, Severe (Pain Scale 7-10) Ondansetron HCl (Ondansetron Hcl 4 Mg/2 Ml Vial) 4 mg IVPUSH Q8H PRN PRN Reason: Nausea and Vomiting Oxycodone HCl (Oxycodone Hcl Immed Release 5 Mg Tablet) 5 mg PO Q6H PRN PRN Reason: Pain, Moderate(Pain Scale 4-6) Sodium Chloride (0.9 % Sodium Chloride Flush 3 Ml Syringe) 3 ml IVFLUSH QSHIFT [facility] Last Admin: 12/27/24 08:08 Dose: Not Given Documented By: JAG Non-Admin Reason: Previously Administered <Tennille Buckner PA-C - Last Filed: 12/27/24 08:28> Labs CBC & Chem 7: 12/25/24 05:39 12/25/24 05:39 <Tennille Buckner PA-C - Last Filed: 12/27/24 08:28> Microbiology Microbiology Results: Microbiology 12/24/24 13:40 Blood Culture - Preliminary Blood - Venous No growth after 48 hours. 12/24/24 13:40 Blood Culture - Preliminary Blood - Venous No growth after 48 hours. <Tennille Buckner PA-C - Last Filed: 12/27/24 08:28> Procedures Date of Service Date of Service: 12/27/24 <Tennille Buckner PA-C - Last Filed: 12/27/24 08:28> 12/27/24 <Ernst Adkins MD - Last Filed: 12/27/24 12:19> Progress Note: A&P Assessment and plan (1) Diverticulitis: Status: Acute <Tennille Buckner PA-C - Last Filed: 12/27/24 08:28> Assessment and Plan: Symptoms have resolved Tolerating regular diet Passing flatus next has BMs abdomen is soft and benign Okay to be discharged from surgical standpoint Oral antibiotics We will need colonoscopy at some point Seen and examined independently <Ernst Adkins MD - Last Filed: 12/27/24 12:19> Assessment and Plan: Clinically improved with supportive measures, tolerating diet, moving bowels. Abd exam remains benign. Ok for discharge to home today from surgical standpoint on course of oral abx. Will need GI outpatient follow up for colonoscopy down the line. Patient comfortable with plan. <Tennille Buckner PA-C - Last Filed: 12/27/24 08:28> Time Spent With Patient Time: Total time managing care of this patient today ____ minutes. <Tennille Buckner PA-C - Last Filed: 12/27/24 08:28> Quality Stroke Does the patient have a stroke diagnosis?: No <Tennille Buckner PA-C - Last Filed: 12/27/24 08:28> VTE Prior VTE?: No <Tennille Buckner PA-C - Last Filed: 12/27/24 08:28> VTE Risk Level:: Medical - moderate - high <Tennille Buckner PA-C - Last Filed: 12/27/24 08:28> VTE Device Contraindication: N/A - Device Ordered <Tennille Buckner PA-C - Last Filed: 12/27/24 08:28> VTE Drug Contraindication: Treatment Not Indicated <Tennille Buckner PA-C - Last Filed: 12/27/24 08:28>
--- NOTE | 2024-12-27 12:11 | MHC.CM.PN ---
DP: PT HAS BEEN MEDICALLY CLEARED FOR DC HOME, NO SERVICES. PT HAS CAR IN LOT AND IS ABLE TO TRANSPORT SELF.
[2024-12-27 12:31] VITALS: BP 141/86; PULSE 71; RESP 18; TEMP 36.8; O2SAT 98
--- NOTE | 2024-12-27 12:33 | P.DS_ITS ---
DS: Providers Provider Date of Service: 12/27/24 Date of admission: 12/24/24 13:36 Date of discharge: 12/27/24 Primary care physician: Akila Saenz NP Consults: 12/24/24 14:17 Consult to General Surgery Routine Consulting [place] [facility] Reason for consultation: diverticulitis with contained perf Has provider been notified: No 12/25/24 07:23 Consult to General Surgery Routine Consulting Provider[place] [facility] Reason for consultation: diverticulitis /? microperf Has provider been notified: No Attending physician on discharge: Laith Kendall Discharging clinician: Laith Kendall DS: Diagnosis Discharge Diagnosis (1) Diverticulitis: Status: Acute DS: Summary Hospital Course Hospital Course: HPI: 39-year-old male with no significant past medical history who presents to the emergency department with abdominal pain. Patient reports abdominal pain starting 3 days ago. The pain is located in the left lower quadrant with no radiation. His pain is associated with nausea and decreased oral intake. He denies any diarrhea, fever, chills. He has not travel or any recent in the emergency department, lab work was significant for leukocytosis of 14.7. CT scan of the abdomen and pelvis showed severe acute diverticulitis of the proximal sigmoid colon. A degree of the edema associated was concerning for early contained perforation. There was a small amount of free fluid but no abscess. He denies any previous history of diverticulitis. He has had no previous colonoscopy. He was treated with IV ceftriaxone and Flagyl. The emergency room provider discussed the case with the on-call surgeon who recommended admission to the medicine service. Hospital course: 39-year-old male with no significant past medical history who presents to the emergency department with abdominal pain found to have diverticulitis- Complicated acute diverticulitis: CTA abdomen imaging concerning for contained perforation, started on IV antibiotics, IV fluid, pain medication, blood cultures sent-With the above management patient seems to be improved significantly, blood culture negative@48hrs . With the above management patient seems to be improved significantly, will be going home with p.o. antibiotics. Also seen by surgery-patient seems to be improved significantly, abdomen is benign,tolerating diet, we will go home on with antibiotic. Recommended outpatient colonoscopy. Plan: Augmentin 875 mg p.o. b.i.d. as prescribed. Outpatient colonoscopy Follow up with surgery outpatient Above management discussed with the patient in detail length he understand and in agreement with the above plan, time spent 45 minute. Time Attestation Total time managing care of this patient today: 45 mintues. Discharge Coordination Time (in mins): 45 min Quality: Safe Use of Opioids Does Pt have an Active Cancer Diagnosis on the Problem List?: No Quality: Stroke Does the patient have a stroke diagnosis?: No Physical Exam Exam: Exam: Appearance: Alert.? Oriented X3.? cvs: rrr, [id number] . res: clear to auscultation ,no rhonchii or wheezing abd: no rebound or guarding ,nt, bs present. ext pulses present , no cyanosis . neuro: axo3 , nonfocal. Vital Signs: Vital Signs: Last Vital Signs Temp 98.2 F 12/27/24 12:31 Pulse 71 12/27/24 12:31 Resp 18 12/27/24 12:31 BP 141/86 H 12/27/24 12:31 Pulse Ox 98 12/27/24 12:31 O2 Del Method Room Air 12/27/24 12:31 BMI result Body Mass Index 24.2 DS: Data Data Completed and Pending Labs on day of discharge: Preliminary micro results at discharge 12/24/24 13:40 Blood Culture - Preliminary Blood - Venous No growth after 48 hours. 12/24/24 13:40 Blood Culture - Preliminary Blood - Venous No growth after [address] scan - abdomen: My impression: ct abd: 1. Severe acute diverticulitis of the proximal sigmoid colon. The degree of associated edema raises the possibility of early contained perforation. There is a small amount of free fluid but no abscess. 2. Possible sludge within the gallbladder. Discharge Plan Discharge Anticipated Discharge Date/Time: 12/27/24 12:03 Patient Disposition: Home, Self-Care Discharge Diagnosis: acute diverticulitis [place]errals: [facility] [place]Provider Group, Gastroenterology] - 1 Month Akila Saenz NP [Primary Care Provider, Internal Medicine] - 1 Week Ernst Adkins MD [Physician, General Surgery] - 1 Week Discharge Medications: New amoxicillin-pot clavulanate 875-125 mg Tablet 1 tab PO Q12H 14 Days Qty: 28 0RF Continued cyanocobalamin (vitamin B-12) 1,000 mcg Tablet 1,000 mcg PO DAILY glucosamine sulfate [Glucosamine] 500 mg Tablet 500 mg PO DAILY Rx Instructions: administer with a meal calcium carbonate [Calcium 600] 600 mg calcium (1,500 mg) Tablet 600 mg PO DAILY red yeast rice 600 mg Capsule 600 mg PO DAILY Rx Instructions: give with meal/snack omega 1-hlj-cgk-fish oil [Fish Oil] 1,000 (120-180) mg Capsule 1 cap PO DAILY Discharge Orders: Discharge Order (Routine); Ordered 12/27/24 Ordered By: Laith Kendall Diet: Advance to usual diet Activity on Discharge: As tolerated Stand Alone Forms: Patient Portal Discharge page Print Language: Nigerien Care Plan Goals: augmentin 875mg po bid outpatent colonosc opy. Health Concerns: complete antibiotics , colonscoy outpatient Plan of Treatment: as above Assessment: as above Patient Instructions: Diverticulitis (DC)
== END 2024-12-27 12:56 | disposition home or self-care (01) | DRG 244 ==
LOC: HO.ED 13:46 → HO.EDOVER 13:57 → HO.S3 21:50
PROVIDERS: Admitting Provider Physician Assistant Medical; Emergency Provider Emergency Medicine Emergency Medical Services; PCP Nurse Practitioner Family; Visit Provider Internal Medicine
DX: K57.20 Diverticulitis of large intestine with perforation and abscess without bleeding (principal); Z79.899 Other long term (current) drug therapy
CPT/HCPCS: 36415; 74176; 80048; 80053; 81001; 83605; 83690; 85025; 85027; 87040; 99285; J0696; J1171; J1836; J1885; J2405; J2543; J7120

== ENCOUNTER → 2024-12-24 10:56 | Outpatient (BNV) | payer OTHER, SELFPAY | PROVIDERS: Admitting Provider Physician Assistant Medical; Emergency Provider Emergency Medicine Emergency Medical Services; PCP Nurse Practitioner Family; Visit Provider Radiology Diagnostic Radiology | DX: R10.A2 Flank pain, left side (principal) | CPT/HCPCS: 74176 ==

== ENCOUNTER → 2024-12-24 13:36 | Outpatient (BNV) | payer OTHER, SELFPAY | PROVIDERS: Admitting Provider Physician Assistant Medical; Emergency Provider Emergency Medicine Emergency Medical Services; PCP Nurse Practitioner Family; Visit Provider Physician Assistant Medical | DX: K57.92 Diverticulitis of intestine, part unspecified, without perforation or abscess without bleeding (principal) | CPT/HCPCS: 99223; 99232; 99239 ==

== ENCOUNTER → 2024-12-24 13:36 | Outpatient (BNV) | payer OTHER, SELFPAY | PROVIDERS: Admitting Provider Physician Assistant Medical; Emergency Provider Emergency Medicine Emergency Medical Services; PCP Nurse Practitioner Family; Visit Provider Physician Assistant Surgical | DX: K57.92 Diverticulitis of intestine, part unspecified, without perforation or abscess without bleeding (principal) | CPT/HCPCS: 99222; 99232 ==

== ENCOUNTER 2025-01-02 14:47 | Outpatient (AMB) | payer OTHER, SELFPAY ==
--- NOTE | 2025-01-02 14:49 | A.OFFVIS_ITS ---
Vital Signs 01/02/25 14:50 Height 5 ft 8 in Weight 168 lb 4 oz BMI 25.6 Intake Visit Reasons: diverticulitis Intake Note: This patient presents for [facility] ER follow-up for diverticulitis. Pt c/o; reports no recent flare-up, fever or chills. DI: 12/24/2024 Abd/pelvis CT Political Scientist Required: No Accompanied by: Self / Same As Patient Allergies No Known Allergies Allergy (Verified 01/02/25 14:58) Medication List - Last Reconciled 01/02/25 by Ernst Adkins MD amoxicillin-pot clavulanate 875-125 mg 1 tab PO Q12H 14 days calcium carbonate (Calcium 600) 600 mg PO DAILY cyanocobalamin (vitamin B-12) 1,000 mcg PO DAILY glucosamine sulfate (Glucosamine) 500 mg PO DAILY omega 3-jpl-eup-fish oil 1,000 (120-180) mg (Fish Oil) 1 cap PO DAILY red yeast rice 600 mg PO DAILY HPI HPI diverticulitis: Details: 39-year-old male here for follow-up for his acute diverticulitis. He was admitted to hospitalist from December 25 to December 27 because of severe acute diverticulitis. He did well with IV antibiotic treatment He says that since discharge he seemed to be doing well at home. He is still on oral antibiotics. Denies any abdominal pain. He has good bowel movements. He says he is tolerating oral intake well. [facility] Medical History Shoulder pain Surgical History Hx of anterior cruciate ligament tear reconstruction Family History Mother No problems noted. Father No problems noted. 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 Review of Systems Const Denies chills and Denies fever(s) Card Denies chest pain, Denies dyspnea and Denies dyspnea on exertion Resp Denies cough, Denies dyspnea and Denies dyspnea on exertion GI Denies hematochezia and Denies change in bowel habits Denies hematuria and Denies difficulty urinating Musc Denies back pain and Denies limited range of motion Neuro Denies focal weakness and Denies convulsions Psych Denies depression and Denies mood swings Physical Exam Vital Signs: BMI result Body Mass Index 25.6 Const General: comfortable and no acute distress Resp Effort & Inspection: normal respiratory effort Cardio Rate: regular rate GI Palpation (GI): Soft to palpation, not firm, nontender and no guarding Assessment & Plan Assessment & Plan (1) Diverticulitis: Code(s): K57.92 - Diverticulitis of intestine, part unspecified, without perforation or abscess without bleeding Category: Medical Plan: He is doing well after discharge from the hospital for acute diverticulitis. He has good oral intake. He denies any abdominal pain. He denies any fever I advised him to make sure that he discusses with his primary care physician the need to have a colonoscopy at some point with the next few months. I also reminded him to make sure that definition his course of oral antibiotics He is welcome to come back to the office down the line if has any concerns or questions. Coding Level of Care Code Est Pt Level 3 (14473) Diagnoses Diverticulitis K57.92
[2025-01-02 14:50] VITALS: BMI 25.6
== END 2025-01-02 15:47 | disposition home or self-care (01) ==
LOC: HO.HGS 14:48
PROVIDERS: PCP Nurse Practitioner Family; Visit Provider Surgery
DX: K57.92 Diverticulitis of intestine, part unspecified, without perforation or abscess without bleeding (principal)
CPT/HCPCS: 99213